=== PATIENT | female | born 1980 | race Native Hawaiian/Other Pacific Islander ===

== ENCOUNTER 2017-11-03 21:56 | Emergency (ER) | payer OTHER ==
[~2017-11-03] VITALS: Ht 170.2 cm; Wt 95.3 kg
[2017-11-03 22:46] LABS: PLATELET COUNT 469 K/uL (152-353)
[2017-11-03 22:51] LABS: POTASSIUM 3.1 mmol/L (3.6-5.2)
[2017-11-04 03:34] VITALS: BP 128/76; TEMP 98.6
== END 2017-11-04 03:34 | disposition home or self-care (01) ==
LOC: ED 21:56
PROVIDERS: Specialist
DX: R18.8 Other ascites (principal); R10.12 Left upper quadrant pain; R10.32 Left lower quadrant pain; Z98.890 Other specified postprocedural states
CPT/HCPCS: 36415; 80053; 81000; 81025; 82150; 83690; 83735; 85027; 96365; 96375; 99284; J0500; J1170; J1885; J2405; J2543; Q9963